=== PATIENT | female | born 1985 | race Caucasian/White ===

== ENCOUNTER → 2021-04-24 | Emergency (ER) | payer MEDICAID ==
[~2021-04-24] VITALS: Ht 160 cm; Wt 49.9 kg
[~2021-04-24] MED LIST: ACET1TAB23 PO; AMOX-426 PO; CHLO473M5 PO; IBUP-1971 PO; OXYC-128 PO; OXYCODONE/ACETAMINOPHEN 5-325 TABLET PO ONE; PANTOPRAZOLE SODIUM 40 MG/VIAL (PROTONIX) ONE; cefTRIAXone 1 GM VIAL ONE
[2021-04-24 17:20] VITALS: BP_SYST 113
--- NOTE | 2021-04-24 22:30 | NUR ---
Patient given written and verbal discharge instructions and verbalizes understanding. ER MD discussed with patient the results and treatment provided. Patient in stable condition. ID arm band removed. IV catheter removed intact and dressing applied, no active bleeding. Rx of pain management given. Patient educated on pain management and to follow up with PMD. Pain Scale . Opportunity for questions provided and answered. Medication side effect fact sheet provided.
== END | disposition home or self-care (01) ==
LOC: SED 15:54
DX: K04.7 Periapical abscess without sinus (principal); Z79.899 Other long term (current) drug therapy
CPT/HCPCS: 99283